=== PATIENT | male | born 1960 | race Caucasian/White ===

== ENCOUNTER 2024-09-09 11:27 | Emergency (ER) | payer OTHER, MEDICARE, SELFPAY ==
[2024-09-09 11:56] VITALS: BP 123/70; PULSE 68; RESP 17; TEMP 36.8; O2SAT 97; BMI 33.7
--- NOTE | 2024-09-09 12:46 | W.ED.MALEGU ---
HPI - Male Genitourinary General: Chief complaint: Urogenital-Male Stated complaint: catheter in- no output, bladder spasms Time Seen by Provider: 09/09/24 12:07 History of Present Illness: 63-year-old male presents to the emergency room with difficulty with the Rowan catheter. He had a bladder repair 2 days ago and had a Rowan catheter placed it stopped draining overnight. Patient really recently had a colovesicular fistula repaired he has a Rowan in place to maintain bladder drainage. He is intermittently getting bladder like spasms. He has not had a significant gross hematuria that he is noted. Overnight there is a large amount of urine in the bag. He continues to be small continuous amounts now. Associated symptoms: Deny dysuria, nausea or vomiting Related Data Previous Rx's Medication Instructions Recorded ciprofloxacin HCl 500 mg tablet 500 mg PO BID #10 tabs 09/09/24 (Cipro) phenazopyridine 200 mg tablet 200 mg PO Q8H PRN pain 6 doses #6 09/09/24 (Pyridium) tabs Allergies Allergy/AdvReac Type Severity Reaction Status Date / Time No Known Allergies Allergy Verified 09/09/24 11:59 Review of Systems Const: Denies: fever(s) or chills Card: Denies: chest pain Resp: Denies: dyspnea GI: Reports: abdominal pain; Denies: nausea or vomiting : Reports: difficulty urinating and urinary dribbling; Denies: dysuria, urinary frequency or urinary urgency Musc: Denies: neck pain or back pain Skin/Breast: Denies: rash Physical Exam Const: COMMON NORMALS: no acute distress GENERAL APPEARANCE: cooperative and comfortable ORIENTATION/CONSCIOUSNESS: Yes awake, Yes oriented to person, Yes oriented to place and Yes oriented to time HENMT: COMMON NORMALS: normocephalic, atraumatic and hearing grossly normal bilaterally HEAD & SCALP: normocephalic and atraumatic Resp: COMMON NORMALS: normal respiratory effort, No retractions, No use of accessory muscles and clear to auscultation bilaterally AUSCULTATION: clear to auscultation bilaterally Cardio: COMMON NORMALS: regular rate, regular rhythm and No murmurs present (Cardio) RATE: regular rate RHYTHM: regular rhythm GI: COMMON NORMALS: Soft to palpation and No hepatosplenomegaly present AUSCULTATION: Yes normoactive bowel sounds PALPATION: Yes Soft to palpation, No Tenderness to palpation present (GI), No Guarding due to palpation present (GI) and Yes No hepatosplenomegaly present Extremity: COMMON NORMALS: normal to inspection, capillary refill normal, no clubbing, cyanosis or edema, no calf tenderness and no pedal edema Neuro: SENSORIUM/ORIENTATION: Yes oriented to person, Yes oriented to place and Yes oriented to time Skin: COMMON NORMALS: no rashes or lesions noted GENERAL SKIN EXAM: no rashes or lesions noted Course Vital Signs: Vital signs: Vital Signs Temperature 98.2 F 09/09/24 11:56 Pulse Rate 68 09/09/24 11:56 Respiratory Rate 17 09/09/24 11:56 Blood Pressure 123/70 09/09/24 11:56 Pulse Oximetry 97 09/09/24 11:56 Oxygen Delivery Me thod Room Air 09/09/24 11:56 MDM - Male Medical Decision Making CT does not show any leakage from the bladder Rowan appears in place on his CT. Will discharge patient home white count is elevated there is no sign of abscess. He had more far more red blood cells in his urine only a few whites. Negative nitrite. He did have 1+ leukocyte esterase. Will put him on Cipro for 5 days. Lab Data 09/09/24 12:56 09/09/24 12:56 Radiology Impressions Abdomen/Pelvis CT 09/09/24 13:38 IMPRESSION: 1. Post partial distal colectomy with no collections suggest leak. 2. Mild bladder wall thickening, that might be related to underdistention to be correlated with urinalysis. COMMENTS: Consistent with the [employer]'s Incidental Findings Committee white paper (J Am Jacque Radiol 2018): Any incidental renal lesion less than 1 cm or classified as too small to characterize, or any incidental cystic renal lesion characterized as simple-appearing, is likely benign. No follow-up imaging is recommended for these lesions per consensus recommendations based on imaging criteria. Laboratory Results WBC 20.84 10^3/uL (3.29-11.43) H 09/09/24 12:56 RBC 4.24 10^6/uL (3.85-5.65) 09/09/24 12:56 Hgb 14.60 g/dL (11.27-16.99) 09/09/24 12:56 Hct 42.0 % (37-53) 09/09/24 12:56 MCV 99.1 fl (82-101) 09/09/24 12:56 MCH 34.4 pg (27-33) H 09/09/24 12:56 MCHC 34.8 g/dL (30-55) 09/09/24 12:56 RDW 13.9 % (12.1-15.1) 09/09/24 12:56 Plt Count 257 10^3/cmm (157-399) 09/09/24 12:56 MPV 11.1 fL (7.4-10.4) H 09/09/24 12:56 Neut % (Auto) 72.1 % 09/09/24 12:56 Lymph % (Auto) 16.3 % 09/09/24 12:56 [place] % (Auto) 10.7 % 09/09/24 12:56 Eos % (Auto) 0.1 % 09/09/24 12:56 Baso % (Auto) 0.2 % 09/09/24 12:56 Neut # (Auto) 15.03 10^3/uL (1.8-7.7) H 09/09/24 12:56 Lymph # (Auto) 3.4 10^3/uL (0.8-4.8) 09/09/24 12:56 [place] # (Auto) 2.2 10^3/uL (0.2-0.9) H 09/09/24 12:56 Eos # (Auto) 0.0 10^3/uL (0.0-0.8) 09/09/24 12:56 Baso # (Auto) 0.0 10^3/uL (0.0-0.1) 09/09/24 12:56 Nucleated RBC % (auto) 0 % 09/09/24 12:56 Nucleated RBCs # 0.0 /100WBC 09/09/24 12:56 Sodium 137 mmol/L (136-145) 09/09/24 12:56 Potassium 3.7 mmol/L (3.5-5.1) 09/09/24 12:56 Chloride 101 mmol/L (98-107) 09/09/24 12:56 Carbon Dioxide 24 mmol/L (22-29) 09/09/24 12:56 Anion Gap 15.7 (5-19) 09/09/24 12:56 BUN 15 mg/dL (8-23) 09/09/24 12:56 Creatinine 0.8 mg/dL (0.7-1.2) 09/09/24 12:56 GFR Calculation 97.0 mL/min (90-130) 09/09/24 12:56 Glucose 115 mg/dL (65-115) 09/09/24 12:56 Calculated Osmolality 286 mOsm/kg (285-295) 09/09/24 12:56 Calcium 10.0 mg/dL (8.5-10.5) 09/09/24 12:56 Total Bilirubin 0.8 mg/dL (0.15-1.2) 09/09/24 12:56 AST 26 U/L (0-40) 09/09/24 12:56 ALT 30 U/L (0-41) 09/09/24 12:56 Alkaline Phosphatase 60 U/L (40-130) 09/09/24 12:56 Total Protein 6.8 g/dL (6.6-8.7) 09/09/24 12:56 Albumin 3.8 g/dL (3.5-5.2) 09/09/24 12:56 Globulin 3.0 g/dL (1.3-4.6) 09/09/24 12:56 Urine Color [place] (Yellow) A 09/09/24 13:32 Urine Appearance Cloudy (CLEAR) A 09/09/24 13:32 Urine pH 6.0 (5-7) 09/09/24 13:32 Ur Specific [place] 1.025 (1.005-1.030) 09/09/24 13:32 Urine Protein 2+ (Negative) A 09/09/24 13:32 Urine Glucose (UA) Negative (Normal) 09/09/24 13:32 Urine Ketones Trace (Negative) 09/09/24 13:32 Urine Blood 3+ (Negative) A 09/09/24 13:32 Urine Nitrate Negative (Negative) 09/09/24 13:32 Urine Bilirubin Negative (Negative) 09/09/24 13:32 Urine Urobilinogen 1.0 mg/dL (Negative) 09/09/24 13:32 Ur Leukocyte Esterase 1+ (Negative) A 09/09/24 13:32 Urine RBC >100 /hpf (0-2) H 09/09/24 13:32 Urine WBC 6-10 /hpf (0-5) 09/09/24 13:32 Ur Squamous Epith Cells 0-5 /hpf (0-5) 09/09/24 13:32 Amorphous Sediment Not Reportable 09/09/24 13:32 Urine Bacteria None seen /hpf (NONE) 09/09/24 13:32 Hyaline Casts 0.81 /lpf 09/09/24 13:32 All radiology interpretation(s) finalized by discharge Discharge Plan Discharge Patient Disposition: Home Clinical Impression: Complication of Rowan catheter Condition: Stable Prescriptions: New phenazopyridine [Pyridium] 200 mg tablet 200 mg PO Q8H PRN (Reason: pain) Qty: 6 0RF ciprofloxacin HCl [Cipro] 500 mg tablet 500 mg PO BID Qty: 10 0RF Discharge Orders: Discharge ED (Routine); Ordered 09/09/24 Ordered By: Hu Roque Referrals: Chris Taylor [Family Provider] - Patient Instructions: Opioid Safety, Pain Management Activity Restrictions/Additional Instructions: Thank you for choosing [facility] for your healthcare needs today. It is very important that you follow up as instructed or that you return to the Emergency Department should you have concerns or if your condition changes or worsens in any way. You were seen with concerns about your Rowan catheter appears to be working properly CT scan does not show any leaks where they repaired the fistula. There is significant amount of blood in the urine and minimal white blood cells. You were given a prescription for Pyridium to help with bladder spasms. Follow-up with your surgeon as previously scheduled. Coding Level of Care Code ED Sustain Engineer for Maksim Leija
[2024-09-09 13:00] VITALS: BP 141/70; PULSE 63; O2SAT 95
[2024-09-09 13:30] VITALS: BP 137/81; PULSE 74; O2SAT 95
[2024-09-09 13:37] LABS: Basophils % 0.2 %; Eosinophils % 0.1 %; Lymphocytes # 3.4 10^3/uL (0.8-4.8); Lymphocytes % 16.3 %; Mean Corpuscular HGB Conc 34.8 g/dL (30-55); Mean Corpuscular Hemoglobin 34.4 pg (27-33); Mean Corpuscular Volume 99.1 fl (82-101); Mean Platelet Volume 11.1 fL (7.4-10.4); Monocytes # 2.2 10^3/uL (0.2-0.9); Monocytes % 10.7 %; Neutrophils # 15.03 10^3/uL (1.8-7.7); Neutrophils % 72.1 %; Nucleated Red Blood Cells % 0 %; Platelet Count 257 10^3/cmm (157-399); Red Blood Count 4.24 10^6/uL (3.85-5.65); Red Cell Distribution Width 13.9 % (12.1-15.1); White Blood Count 20.84 10^3/uL (3.29-11.43)
--- NOTE | 2024-09-09 13:38 | CTR_ITS ---
PROCEDURE INFORMATION: Exam: CT Abdomen And Pelvis With Contrast Exam date and time: 09/09/2024 2:25 PM Age: 63 years old Clinical indication: Abdominal pain; Localized; Lower; Prior surgery; Surgery date: 3-7 days post-operative; Surgery type: Bladder/bowel; Patient HX: Prostate cancer; Additional info: Abd pain TECHNIQUE: Imaging protocol: Computed tomography of the abdomen and pelvis with contrast. Radiation optimization: All CT scans at this facility use at least one of these dose optimization techniques: automated exposure control; mA and/or kV adjustment per patient size (includes targeted exams where dose is matched to clinical indication); or iterative reconstruction. Contrast material: OMNIPAQUE 350; Contrast volume: 350 ml; Contrast route: INTRAVENOUS (IV); COMPARISON: CT abdomen pelvis w con* [id number] 10/28/2018 9:22 AM RADIATION DOSE METRICS: Total DLP (mGy-cm): 954.16 FINDINGS: Liver: Normal. No mass. Gallbladder and biliary ducts: Normal. No calcified stones. No ductal dilation. Pancreas: Normal. No ductal dilation. Spleen: Normal. No splenomegaly. Adrenal glands: Normal. No mass. Kidneys and ureters: Bilateral simple renal cysts measuring up to 9 mm in the upper pole of the right kidney. Calcifications in the interpolar region of the right kidney. There is no evidence of hydronephrosis. Stomach and bowel: Post partial distal colectomy. Appendix: No evidence of appendicitis. Intraperitoneal space: Unremarkable. No free air. No significant fluid collection. Vasculature: There are numerous benign phleboliths in the pelvis. Lymph nodes: Unremarkable. No enlarged lymph nodes. Urinary bladder: Rowan catheter tip is in the bladder. There is mild bladder wall thickening. Reproductive: Unremarkable as visualized. Bones/joints: There are mild degenerative changes of the sacroiliac joints. The pubic symphysis demonstrates mild degenerative changes. 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 Mild retrolisthesis of L5 over S1 with posterior disc bulge causing mild bony canal stenosis. Soft tissues: Mild pockets of air anterior to the bladder and in the subcutaneous tissues of the left lower abdomen, postop. CT/CT abdomen pelvis w con* [id number] IMPRESSION: 1. Post partial distal colectomy with no collections suggest leak. 2. Mild bladder wall thickening, that might be related to underdistention to be correlated with urinalysis. COMMENTS: Consistent with the [place] [employer]'s Incidental Findings Committee white paper (J Am Jacque Radiol 2018): Any incidental renal lesion less than 1 cm or classified as too small to characterize, or any incidental cystic renal lesion characterized as simple-appearing, is likely benign. No follow-up imaging is recommended for these lesions per consensus recommendations based on imaging criteria.
[2024-09-09 13:53] LABS: Alanine Aminotransferase 30 U/L (0-41); Albumin Level 3.8 g/dL (3.5-5.2); Alkaline Phosphatase 60 U/L (40-130); Anion Gap 15.7 (5-19); Aspartate Amino Transferase 26 U/L (0-40); Blood Urea Nitrogen 15 mg/dL (8-23); Carbon Dioxide 24 mmol/L (22-29); Chloride 101 mmol/L (98-107); Glucose 115 mg/dL (65-115); Osmolality Calculated 286 mOsm/kg (285-295); Potassium 3.7 mmol/L (3.5-5.1); Sodium 137 mmol/L (136-145); Total Bilirubin 0.8 mg/dL (0.15-1.2); Total Protein 6.8 g/dL (6.6-8.7)
[2024-09-09 13:58] LABS: Bilirubin Urine Negative (Negative); Blood Urine 3+ (Negative); Glucose Urine UA Negative (Normal); Ketones Urine Trace (Negative); Leukocyte Esterase Urine 1+ (Negative); Nitrate Urine Negative (Negative); Protein Urine 2+ (Negative); Specific Gravity, Urine 1.025 (1.005-1.030); Urine Appearance Cloudy (CLEAR)
[2024-09-09 14:00] VITALS: BP 161/82; PULSE 61; O2SAT 95
[2024-09-09 14:03] LABS: Add Urine Microscopic? YES; Bacteria Urine None Seen /hpf; Hyaline Casts Urine 0.81 /lpf; RBC Urine >100 /hpf (0-2); Squamous Epithelial Cell Urine 0-5 /hpf (0-5)
[2024-09-09 14:28] LABS: Urine Color Orange (Yellow)
[2024-09-09] MEDS: iohexol 350 mg/mL 500 mL Btl (per mL) IV (14:28)
[2024-09-09 14:29] LABS: Add Urine Culture? Yes; UA Slide Review UA Slide Review Perf
[2024-09-09 16:10] VITALS: BP 159/89; PULSE 69; O2SAT 96
== END 2024-09-09 16:10 | disposition home or self-care (01) ==
PROVIDERS: Emergency Provider Family Medicine
DX: T83.091A Other mechanical complication of indwelling urethral catheter, initial encounter (principal); X58.XXXA Exposure to other specified factors, initial encounter
CPT/HCPCS: 74177; 80053; 81001; 85025; 87086; 99285